=== PATIENT | male | born 1985 | race Caucasian/White ===

== ENCOUNTER 2024-03-04 08:57 | Day surgery (SDC) | payer OTHER ==
[2024-03-04] VITALS (12 sets, daily range): BP systolic 124–155; BP diastolic 68–95; PULSE 62–86; TEMP 97.8–98.6
[~2024-03-04] VITALS: Ht 167.6 cm; Wt 75.5 kg
[~2024-03-04 08:57] MED LIST: LR 1,000 ML IV SCH
[2024-03-04] MEDS ORDERED: Meclizine 25 MG TAB PO SCH (10:15)
[2024-03-04] MEDS ORDERED: Famotidine 20 MG TAB PO SCH ×2 (10:15→21:00)
[2024-03-04] MEDS ORDERED: MOTRIN 200200 MG/TAB PO (11:04)
[2024-03-04] MEDS ORDERED: EXCEDRIN TENSIO1 CAP PO (11:04)
[2024-03-04] MEDS ORDERED: PROTONIX 40MG T40 MG PO (11:05)
[2024-03-04] MEDS ORDERED: ZANTAC-360 (FAM20 MG PO (11:06)
[2024-03-04] MEDS ORDERED: Lidocaine PF 2% (20 MG/ML) 5 ML VIAL ONE ×2 (11:07→12:48)
[2024-03-04] MEDS ORDERED: fentaNYL 50 MCG/ML 2 ML VIAL ONE (11:07)
[2024-03-04] MEDS ORDERED: Atracurium 50 MG/5 ML VIAL IV ONE (11:11)
[2024-03-04] MEDS ORDERED: XYZAL5 MG PO (11:18)
[2024-03-04] MEDS ORDERED: Ketorolac 30 MG/ML VIAL ONE (11:46)
[2024-03-04] MEDS ORDERED: dexAMETHasone 10 MG/ML VIAL ONE (11:46)
[2024-03-04] MEDS ORDERED: Ondansetron 4 MG/2 ML VIAL ONE (11:46)
[2024-03-04] MEDS ORDERED: Labetalol 100 MG/20 ML Multi-Dose VIAL ONE (11:59)
[2024-03-04] MEDS ORDERED: Meperidine 50 MG/ML 1 ML VIAL IV PRN (12:15)
[2024-03-04] MEDS ORDERED: fentaNYL 50 MCG/ML 1 ML SYRINGE/VIAL [PACU/SDC ONLY] IV PRN (12:15)
[2024-03-04] MEDS ORDERED: HYDROmorphone 1 MG/1 ML SYRINGE [PACU/SDC ONLY] IV PRN (12:15)
[2024-03-04] MEDS ORDERED: Ondansetron 4 MG/2 ML VIAL IV PRN ×2 (12:15→13:15)
[2024-03-04] MEDS ORDERED: Glycopyrrolate 0.2 MG/ML 1 ML VIAL ONE (12:42)
[2024-03-04] MEDS ORDERED: Naloxone 0.4 MG/ML VIAL IV PRN (13:15)
[2024-03-04] MEDS ORDERED: Ibuprofen 400 MG TAB PO PRN (13:15)
[2024-03-04] MEDS ORDERED: HYDROmorphone 0.5 MG/0.5 ML SYRINGE IV PRN (13:15)
[2024-03-04] MEDS ORDERED: Ketorolac 15 MG/ML VIAL IV SCH ×2 (14:00→20:00)
--- NOTE | 2024-03-04 14:00 | NUR ---
PATIENT ADMITED INTO ROOM 350 POSTOP. ORIENTED BUT DROWSY. VSS. 02 @ 2L PER NC WITH SATS IN MID TO UPPER 90'S. PACU REPORTS C/O PAIN & NAUSEA AND WAS GIVEN MEDS, SEE MAR. NO COMPLAINTS AT THIS TIME. ABD IS ROUND, SOFT AND WITH POSITIVE BOWL SOUNDS. ABD LAP SITES X6 ARE CD&I WITH BANDAIDS. FULL LIQUID DIET ORDERED, LIQUIDS AT BEDSIDE. IV FLUIDS INFUSING INTO LEFT HAND IV. HEAD TO TOE ASSESSMENT COMPLETE. SCD'S TO BLE. AT BEDSIDE. ORIENTED TO ROOM. CALL LIGHT IN REACH.
--- NOTE | 2024-03-04 16:05 | NUR ---
[facility]AN met with patient and his Xenia ([phone]) to complete initial assessment for discharge planning. Patient and live in [place] with two of their children, ages 18 and 10 years old. 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 Saji Lyn as his PCP at [facility]. He get his medications from [facility] in [place]. Patient denies having any DME. Patient plans to return home at discharge. Discharge plan: Home
[2024-03-05 00:22] VITALS: BP_SYST 143
[2024-03-05 03:58] VITALS: BP 129/79; PULSE 70; TEMP 97.7
[2024-03-05 04:05] VITALS: BP_SYST 129
[2024-03-05 08:00] VITALS: BP 126/84; PULSE 71; TEMP 97.9
--- NOTE | 2024-03-05 08:00 | NUR ---
PATIENT IS A&O AND INDEPENDENT IN ROOM. PATIENT WENT FOR A WALK IN THE HALLS AND HE REPORTED SOME FEELSING OF SOA & SHARP FLANK PAIN. WHAT PATIENT IS REPORTING SOUNDS LIKE TYPICAL POST-OP GAS PAINS. 02 SATS IN MID 90'S ON RA. PATIENT IS A CURRENT SMOKER. VSS. POST-OP ROBOTIC/ERAS EDUCATION PROVIDED. ABD IS SL DISTENDED WITH POSITIVE BOWL SOUNDS. HE REPORTS HE IS PASSING GAS, NO BM YET. NO C/O N/V. TOLERATING FULL LIQUID/BLEND DIET. AM MEDS GIVEN. SCHEDULED IV TORADOL GIVEN THEN LEFT HAND IV DC'D DUE TO PENDING DISCHARGE. HEAD TO TOE ASSESSMENT WNL. ABD LAP SITES X6 WITH BANDAIDS INPLACE. RIGHT ABD LAP SITES X2 OOZING AND BANDAIDS CHANGED. REPORTS ABD PAIN AT 6/10, GAVE PRN NORCO. SCD'S CURRENTLY OFF. PATIENT IS GOING TO GO FOR ANOTHER WALK IN THE HALLS. PATIENT PLANNING TO DISCHARGE HOME LATER.
[2024-03-05] MEDS ORDERED: Levocetirizine 5 MG **** subs to Cetirizine 10 MG PO SCH (09:00)
[2024-03-05] MEDS ORDERED: Cetirizine 10 MG TAB PO SCH (09:00)
[2024-03-05 12:00] VITALS: BP 124/85; PULSE 69; TEMP 97.7
--- NOTE | 2024-03-05 12:45 | NUR ---
PATIENT HAS AMBULATED THE HALLS MULTIPLE TIMES TODAY ALREADY. DOING WELL AND HOPING TO DISCHARGE HOME LATER TODAY. NOW ON UNIT MAKING ROUNDS, SEE ORDERS.
[2024-03-05 12:48] VITALS: BP_SYST 124
[2024-03-05] MEDS ORDERED: NORCO 325 MG-51 TAB PO (12:52)
--- NOTE | 2024-03-05 14:00 | NUR ---
PATIENT DOING WELL, DISCHARGE CRITERIA MEET. GAVE DISCHARGE INSTRUCTIONS, E-SCRIPT SENT, AND DISCUSSED F/U APT. ANSWERED QUESTIONS/CONCERNS. PATIENT IS DRESSED, PACKED AND DISCHARGED TO PERSONAL VEHICLE WITH .
== END 2024-03-05 14:00 | disposition home or self-care (01) ==
LOC: SDCO 08:57 → SURG 13:56 → SDCO 03-05 14:00
DX: K44.9 Diaphragmatic hernia without obstruction or gangrene (principal); K21.9 Gastro-esophageal reflux disease without esophagitis; F17.210 Nicotine dependence, cigarettes, uncomplicated; Z79.899 Other long term (current) drug therapy
CPT/HCPCS: OP; J0690; J0780; J1100; J1171; J1885; J1920; J2405; J2704; J3010; J7120